=== PATIENT | female | born 1935 | race Caucasian/White ===

== ENCOUNTER 2017-04-20 08:14 | Day surgery (SDC) | payer OTHER ==
[~2017-04-20] VITALS: Ht 160 cm; Wt 49.3 kg
[~2017-04-20 08:14] MED LIST: BISA5EC; CHOL10002; Cod Liver Oil1 EAC2; Curcumin1 GM; DIALYVITE 8001 EACH; Diovan160 MG; FOLI1; HAWTHORNE BERRY; HYDR1TAB94; LUTEIN6 MG; MILK THISTLE1 GM; POLYOX WSR-3011 GM; THYR60
== END 2017-04-20 11:00 | disposition home or self-care (01) ==
LOC: ORSCSDS 08:14
PROVIDERS: Internal Medicine Gastroenterology
PROC: 0DBH8ZX Excision of Cecum, Via Natural or Artificial Opening Endoscopic, Diagnostic (ICD-10-PCS; principal; 2017-04-20 09:30)
PROC: 0DBK8ZX Excision of Ascending Colon, Via Natural or Artificial Opening Endoscopic, Diagnostic (ICD-10-PCS; principal; 2017-04-20 09:30)
DX: Z12.11 Encounter for screening for malignant neoplasm of colon (principal); D12.0 Benign neoplasm of cecum; D12.2 Benign neoplasm of ascending colon; K57.30 Diverticulosis of large intestine without perforation or abscess without bleeding; K64.8 Other hemorrhoids; Z86.010 Personal history of colon polyps; Z80.0 Family history of malignant neoplasm of digestive organs; I10 Essential (primary) hypertension; E78.5 Hyperlipidemia, unspecified; Z87.891 Personal history of nicotine dependence; Z79.899 Other long term (current) drug therapy
CPT/HCPCS: 88305; J7120

== ENCOUNTER 2020-09-16 16:36 | Emergency (ER) | payer OTHER ==
[~2020-09-16] VITALS: Ht 160 cm; Wt 48.1 kg
[2020-09-16 17:09] LABS: BASOPHILS ABSOLUTE AUTO 0.05 K/mm3 (0.00-0.23); BASOPHILS PERCENT AUTO 1 % (0-2); EOSINOPHILS ABSOLUTE AUTO 0.26 K/mm3 (0.00-0.68); EOSINOPHILS PERCENT AUTO 5 % (0-6); Hematocrit 35.7 % (33.0-51.0); Hemoglobin 12.4 g/dL (11.5-16.0); IMMATURE GRAN ABSOLUTE AUTO 0.01 K/mm3 (0.00-0.10); IMMATURE GRAN PERCENT AUTO 0 % (0-1); LYMPHOCYTES ABSOLUTE AUTO 1.16 K/mm3 (0.84-5.20); LYMPHOCYTES PERCENT AUTO 21 % (21-46); MONOCYTES PERCENT AUTO 9 % (4-13); Mean Corpuscular HGB 31.2 pg (26.0-34.0); Mean Corpuscular HGB Conc 34.7 g/dL (31.5-36.5); Mean Corpuscular Volume 90 fL (80-100); Mean Platelet Volume 8.8 fL (9.1-12.4); NEUTROPHILS ABSOLUTE AUTO 3.52 K/mm3 (1.96-9.15); NEUTROPHILS PERCENT AUTO 64 % (41-73); Platelet Count 216 K/mm3 (150-400); RDW Coefficient Variation 12.8 % (11.7-14.2); RDW Standard Deviation 42.6 fL (35.1-46.3); Red Blood Cell Count 3.98 M/mm3 (3.80-5.20)
[2020-09-16 17:26] LABS: Alanine Aminotransfer (ALT/SGP 34 U/L (12-78); Albumin/Globulin Ratio 1.4 (0.8-1.8); Alk Phos 64 U/L (50-136); Anion Gap 6 mmol/L (6-16); Aspartate Aminotrans (AST/SGOT 36 U/L (12-37); Bilirubin, Total 1.3 mg/dL (0.1-1.0); Blood Urea Nitrogen 7 mg/dL (8-24); Bun/Creatinine Ratio 10.1 (12.0-20.0); CO2, Blood 26 mmol/L (21-32); Calcium, Blood 8.9 mg/dL (8.5-10.1); Chloride, Blood 98 mmol/L (98-108); Creatinine, Blood 0.69 mg/dL (0.40-1.00); Globulin, Blood 2.8 g/dL (2.2-4.0); Glomerular Filtration Rate >60 (60-); Glucose, Blood 85 mg/dL (70-99); Potassium, Blood 4.1 mmol/L (3.5-5.5); Sodium, Blood 130 mmol/L (136-145); Total Protein, Blood 6.8 g/dL (6.4-8.2)
[2020-09-16] MEDS ORDERED: EUTHYROX50 MC1 (18:55)
[2020-09-16] MEDS ORDERED: LOSA50 PO (18:55)
[2020-09-16] MEDS ORDERED: LIOT5 PO (18:55)
[2020-09-16] MEDS ORDERED: Ascorbic Acid500 MG PO (18:58)
[2020-09-16] MEDS ORDERED: DHEA PO (18:59)
[2020-09-16] MEDS ORDERED: Pregnenolone Po25 GM PO (19:00)
[2020-09-16] MEDS ORDERED: ZINC15 PO (19:01)
[2020-09-16] MEDS ORDERED: Selenomax200 MCG PO (19:01)
[2020-09-16] MEDS ORDERED: MAGNESIUM OXID500 MG PO (19:03)
[2020-09-16 19:29] LABS: International Normalized Ratio 1.08; Prothrombin Time Results 11.6 Sec (9.7-11.5)
== END 2020-09-16 19:50 | disposition home or self-care (01) ==
LOC: ER 16:36
PROVIDERS: Emergency Medicine; Physician Assistant
DX: M25.411 Effusion, right shoulder (principal); I10 Essential (primary) hypertension; Z88.0 Allergy status to penicillin; Z79.899 Other long term (current) drug therapy; Z87.891 Personal history of nicotine dependence
CPT/HCPCS: 36415; 80053; 83605; 84550; 85025; 85610; 85651; 86140; 87040; 99283

== ENCOUNTER 2021-08-04 19:29 | Emergency (ER) | payer OTHER ==
[~2021-08-04] VITALS: Ht 157.5 cm; Wt 49.0 kg
[~2021-08-04 19:29] MED LIST changes: +Ascorbic Acid500 MG PO; +DHEA PO; +EUTHYROX50 MC1; +LIOT5 PO; +LOSA50 PO; +MAGNESIUM OXID500 MG PO; +Pregnenolone Po25 GM PO; +Selenomax200 MCG PO; +ZINC15 PO
[2021-08-04] MEDS ORDERED: Percocet 5-3251 EACH PO (21:59)
== END 2021-08-04 22:04 | disposition home or self-care (01) ==
LOC: ER 19:29
DX: S52.021A Displaced fracture of olecranon process without intraarticular extension of right ulna, initial encounter for closed fracture (principal); M70.22 Olecranon bursitis, left elbow; I10 Essential (primary) hypertension; Z87.891 Personal history of nicotine dependence; Z88.0 Allergy status to penicillin; Z79.899 Other long term (current) drug therapy; X58.XXXA Exposure to other specified factors, initial encounter
CPT/HCPCS: 29105; 73070; 73562-RT; 99283-25

== ENCOUNTER 2022-02-07 16:12 | Emergency (ER) | payer OTHER ==
[~2022-02-07] VITALS: Ht 160 cm; Wt 46.3 kg
[~2022-02-07 16:12] MED LIST changes: +Percocet 5-3251 EACH PO
== END 2022-02-07 18:30 | disposition home or self-care (01) ==
LOC: ER 16:12
DX: S81.802A Unspecified open wound, left lower leg, initial encounter (principal); I10 Essential (primary) hypertension; E03.9 Hypothyroidism, unspecified; Z87.891 Personal history of nicotine dependence; Z88.0 Allergy status to penicillin; Z79.899 Other long term (current) drug therapy; W22.8XXA Striking against or struck by other objects, initial encounter
CPT/HCPCS: 73590; 93971